=== PATIENT | female | born 1990 | race Two or more races ===

== ENCOUNTER 2022-09-24 19:24 | Emergency (ER) | payer BC ==
[2022-09-24 19:34] VITALS: BP 145/96; PULSE 79; RESP 20; TEMP 98.6; BMI 29.9
[2022-09-24] MEDS ORDERED: KETOROLAC TROMETHAMINE 30 MG/1 ML VIAL IM ONE (20:34)
[2022-09-24] MEDS ORDERED: ACETAMINOPHEN 500 MG TABLET (FP) PO ONE (20:34)
[2022-09-24] MEDS ORDERED: ACETAMINOPHEN 500 MG TABLET (FP) ONE (20:41)
[2022-09-24] MEDS ORDERED: KETOROLAC TROMETHAMINE 30 MG/1 ML VIAL ONE (20:41)
== END 2022-09-24 21:39 | disposition home or self-care (01) ==
LOC: JER 19:24 → JERFT 19:24
PROC: 3E0233Z Introduction of Anti-inflammatory into Muscle, Percutaneous Approach (ICD-10-PCS; principal; 2022-09-24)
DX: S93.401A Sprain of unspecified ligament of right ankle, initial encounter (principal); M25.571 Pain in right ankle and joints of right foot; R22.41 Localized swelling, mass and lump, right lower limb; W10.8XXA Fall (on) (from) other stairs and steps, initial encounter; X50.1XXA Overexertion from prolonged static or awkward postures, initial encounter
CPT/HCPCS: 73610-TC-RT-FY; 73630-TC-RT-FY; 99284-25